=== PATIENT | female | born 1990 | race Caucasian/White ===

== ENCOUNTER → 2016-06-28 | Outpatient (CLI) | payer OTHER ==
[~2016-06-28] MED LIST: ARIP1TAB5 PO; LEFL20 PO; METH25IN13; NAPR500T PO; SPRI28TA PO; TOFA5TAB PO; TOPA25TA8 PO; ULTR50TA5 PO; ZOLO100T PO
[2016-06-28 09:19] LABS: AUTOMATED NEUTROPHIL # 6.8 TH/MM3 (1.8-7.7); BASOPHIL % 0.2 % (0.0-2.0); EOSINOPHIL # 0.1 TH/MM3 (0-0.4); EOSINOPHIL % 0.9 % (0.0-4.0); HEMATOCRIT 38.8 % (35.0-46.0); HEMO FLAGS DIFF FINAL; LYMPH % 16.6 % (9.0-44.0); LYMPHOCYTE # 1.5 TH/MM3 (1.0-4.8); MEAN CELL VOLUME 91.5 FL (80.0-100.0); MEAN CORPUSCULAR HGB CONC 33.9 % (32.0-36.0); MONO % 6.7 % (0.0-8.0); NEUT % 75.6 % (16.0-70.0); PLATELET COUNT 187 TH/MM3 (150-450); RED BLOOD COUNT 4.24 MIL/MM3 (4.00-5.30)
[2016-06-28 09:50] LABS: WESTERGREN SEDIMENTATION RATE 31 mm/hr (0-20)
[2016-06-28 09:54] LABS: ALKALINE PHOSPHATASE 72 U/L (45-117); ALT (GPT) 32 U/L (10-53); ANION GAP 8 MEQ/L (5-15); AST (GOT) 20 U/L (15-37); BICARBONATE 26.6 MEQ/L (21.0-32.0); BLOOD UREA NITROGEN 15 MG/DL (7-18); CHLORIDE 103 MEQ/L (98-107); GLOMERULAR FILTRATION RATE 126 ML/MIN (>89); POTASSIUM 3.7 MEQ/L (3.5-5.1); SODIUM (NA) 138 MEQ/L (136-145); TOTAL BILIRUBIN ADULT 0.3 MG/DL (0.2-1.0)
[2016-06-28 10:12] LABS: RHEUMATOID FACTOR TRIGGER LESS THAN 10.0 IU/ML (0.0-14.9)
[2016-06-28 12:18] LABS: HEPATITIS B SURFACE ANTIBODY GREATER THAN 150 mIU/mL
== END ==
LOC: PLAB 07:42
DX: M79.1 Myalgia (principal); M05.79 Rheumatoid arthritis with rheumatoid factor of multiple sites without organ or systems involvement
CPT/HCPCS: 80053; 82306; 84443; 85025; 85652; 86140; 86200; 86317; 86430; 86803

== ENCOUNTER → 2016-11-11 | Outpatient (CLI) | payer OTHER ==
[~2016-11-11] MED LIST changes: -LEFL20 PO
[2016-11-11 13:00] LABS: BASOPHIL % 0.3 % (0.0-2.0); EOSINOPHIL # 0.2 TH/MM3 (0-0.4); EOSINOPHIL % 2.1 % (0.0-4.0); HEMO FLAGS DIFF FINAL; LYMPH % 21.4 % (9.0-44.0); LYMPHOCYTE # 2.1 TH/MM3 (1.0-4.8); MEAN CELL VOLUME 90.7 FL (80.0-100.0); MEAN CORPUSCULAR HEMOGLOBIN 30.4 PG (27.0-34.0); MEAN CORPUSCULAR HGB CONC 33.5 % (32.0-36.0); MONO % 6.4 % (0.0-8.0); NEUT % 69.8 % (16.0-70.0); PLATELET COUNT 227 TH/MM3 (150-450); RED BLOOD COUNT 3.86 MIL/MM3 (4.00-5.30); RED CELL DISTRIBUTION WIDTH 14.2 % (11.6-17.2)
[2016-11-11 13:21] LABS: ALT (GPT) 24 U/L (10-53); ANION GAP 8 MEQ/L (5-15); AST (GOT) 14 U/L (15-37); BICARBONATE 24.4 MEQ/L (21.0-32.0); BLOOD UREA NITROGEN 16 MG/DL (7-18); CHLORIDE 108 MEQ/L (98-107); GLOMERULAR FILTRATION RATE 109 ML/MIN (>89); SODIUM (NA) 140 MEQ/L (136-145)
[2016-11-11 13:23] LABS: ALKALINE PHOSPHATASE 80 U/L (45-117); TOTAL BILIRUBIN ADULT 0.3 MG/DL (0.2-1.0)
[2016-11-11 13:36] LABS: WESTERGREN SEDIMENTATION RATE 67 mm/hr (0-20)
[2016-11-13 20:03] LABS: MITOGEN MINUS NIL RESULT >10.00 IU/mL (()); NIL RESULT 0.02 IU/mL (()); QUANTIFERON TB GOLD RESULT Negative (Negative)
== END ==
LOC: PLAB 08:48
DX: M05.79 Rheumatoid arthritis with rheumatoid factor of multiple sites without organ or systems involvement (principal); E55.9 Vitamin D deficiency, unspecified; Z79.899 Other long term (current) drug therapy
CPT/HCPCS: 80053; 82306; 85025; 85652; 86140; 86480; 87340

== ENCOUNTER → 2017-01-22 | Outpatient (CLI) | payer OTHER ==
[~2017-01-22] VITALS: Ht 167.6 cm; Wt 128.9 kg
[~2017-01-22] MED LIST changes: +AZIT250T3 PO; +CHLORHEXIDINE GLUCONATE 2 % 1 PACK (2 CLOTHS) TOPICAL PRN; +DO NOT ADM ANY ANTICOAGULANT DRUGS PRN; +FAMOTIDINE 20 MG/2 ML VIAL ONE; +INSULIN HUMAN REGULAR 1,000 UNITS/10 ML VIAL SQ PRN; +LACTATED RINGER'S 1000 ML IV PRN; -METH25IN13; +METOPROLOL TARTRATE 25 MG TAB PO PRN; +MIDAZOLAM HCL 2 MG/2 ML VIAL ONE; -NAPR500T PO; +POVIDONE IODINE 5% (ANTISEPSIS KIT) 4 APPLICATIONS EACH NARE PRN; +PROM25TA10 PO; +PROP60CA PO; +PROPOFOL 200 MG/20 ML AMP IV ONE; +SODIUM CHLORID 0.9% 500 ML IV PRN; +SYNT175T PO; -TOFA5TAB PO; +TOPA100T11 PO; -TOPA25TA8 PO
[2017-01-22 09:48] VITALS: BP 118/72; PULSE 84; RESP 18; TEMP 97.9; O2SAT 98
--- NOTE | 2017-01-22 11:33 | GIPROC ---
[facility] [address] [facility]. [facility], [id number] EGD PROCEDURE REPORT EXAM DATE: 01/22/2017 PATIENT NAME: Juanita Espinoza MR #: [id number] BIRTHDATE: 1990 ATTENDING: Guanakito Stauffer MD ORDER #: [id number] [employer] WORKER: Marco Mcgill and Octavia Mejia STATUS: outpatient INDICATIONS: The patient is a 26 yr old female here for an EGD due to dyspepsia and pyrosis; no significant improvement with omeprazole over the past two weeks. She has documented gastroparsis. She experiences early satiety. PROCEDURE PERFORMED: EGD w/ biopsy MEDICATIONS: GET. TOPICAL ANESTHETIC: none CONSENT: The patient understands the risks and benefits of the procedure and understands that these risks include, but are not limited to: sedation, allergic reaction, infection, perforation and/or bleeding. Alternative means of evaluation and treatment include, among others: physical exam, x-rays, and/or surgical intervention. The patient elects to proceed with this endoscopic procedure. medical equipment was checked for proper function. Hand hygiene and appropriate measures for infection prevention was taken. After the risks, benefits and alternatives of the procedure were thoroughly explained, Informed consent was verified, confirmed and timeout was successfully executed by the treatment team. The patient was anesthetized with topical anesthesia and the Pentax EG-[id number] endoscope was introduced through the mouth and advanced to the 2nd portion of the duodenum . Retroflexion was performed The gastroscope was then slowly withdrawn and removed. The esophgus appeared normal with no evidence of Osborn's mucosa or esophagitis. Fluid was present in the dependent portion of the stomach; antral erosions were noted; biopsies were taken to check for H.pylori. The pylorus and duodenum appeared normal. ADVERSE EVENTS: There were no complications. IMPRESSIONS: Retroflexion was performed Fluid in the stomach, consistent with her known gastroparesis. Antral erosions; biopsied. RECOMMENDATIONS: 1. Await biopsy results. Biopsy results will not be ready for 7-10 days. If you don't hear from us in two weeks, call our office for biopsy results. 2. Gastroparesis diet. Change omeprazole to sucralfate. Return office visit in two weeks. PATIENT CONDITION: stable DISPOSITION: Home REPEAT EXAM: None needed Guanakito Stauffer MD eSigned: Guanakito Stauffer MD 01/22/2017 11:33 AM cc: PATIENT NAME: Juanita Espinoza MR#: [id number]
[2017-01-22 12:30] VITALS: BP 113/69; PULSE 84; RESP 16; TEMP 98.5; O2SAT 98
== END ==
LOC: HEND 08:48
DX: R10.13 Epigastric pain (principal); R12 Heartburn; R68.81 Early satiety; K31.84 Gastroparesis
CPT/HCPCS: 00740; 43239; 88305; 88312; J2250; J3010; J7120; 88307

== ENCOUNTER 2017-01-24 22:42 | Emergency (ER) | payer OTHER ==
[~2017-01-24 22:42] MED LIST changes: -AZIT250T3 PO; -CHLORHEXIDINE GLUCONATE 2 % 1 PACK (2 CLOTHS) TOPICAL PRN; -DO NOT ADM ANY ANTICOAGULANT DRUGS PRN; -FAMOTIDINE 20 MG/2 ML VIAL ONE; -INSULIN HUMAN REGULAR 1,000 UNITS/10 ML VIAL SQ PRN; -LACTATED RINGER'S 1000 ML IV PRN; -METOPROLOL TARTRATE 25 MG TAB PO PRN; -MIDAZOLAM HCL 2 MG/2 ML VIAL ONE; -POVIDONE IODINE 5% (ANTISEPSIS KIT) 4 APPLICATIONS EACH NARE PRN; -PROM25TA10 PO; -PROP60CA PO; -PROPOFOL 200 MG/20 ML AMP IV ONE; -SODIUM CHLORID 0.9% 500 ML IV PRN; -SYNT175T PO
[2017-01-24 22:45] VITALS: BP 159/82; PULSE 99; RESP 16; TEMP 97.7; O2SAT 100
[2017-01-25] MEDS ORDERED: SODIUM CHLOR 0.9% 1000 ML INJ 1,000 ML IV SCH (00:25)
[2017-01-25 00:30] VITALS: O2SAT 99
[2017-01-25] MEDS ORDERED: HYDROmorphone HCL PF 1 MG/ML VIAL IVS ONE (00:30)
[2017-01-25] MEDS ORDERED: ONDANSETRON HCL 4 MG/2 ML VIAL IVP ONE (00:30)
[2017-01-25] MEDS ORDERED: SODIUM CHLORIDE 0.9% FLUSH 10 ML FLUSH IV FLUSH PRN (00:30)
[2017-01-25 01:00] LABS: AUTOMATED NEUTROPHIL # 6.8 TH/MM3 (1.8-7.7); BASOPHIL % 0.5 % (0.0-2.0); EOSINOPHIL # 0.1 TH/MM3 (0-0.4); EOSINOPHIL % 1.2 % (0.0-4.0); HEMATOCRIT 37.5 % (35.0-46.0); HEMO FLAGS DIFF FINAL; LYMPH % 18.8 % (9.0-44.0); LYMPHOCYTE # 1.8 TH/MM3 (1.0-4.8); MEAN CELL VOLUME 88.6 FL (80.0-100.0); MEAN CORPUSCULAR HEMOGLOBIN 29.4 PG (27.0-34.0); MEAN CORPUSCULAR HGB CONC 33.2 % (32.0-36.0); MONO % 6.7 % (0.0-8.0); NEUT % 72.8 % (16.0-70.0); PLATELET COUNT 199 TH/MM3 (150-450); RED BLOOD COUNT 4.23 MIL/MM3 (4.00-5.30); RED CELL DISTRIBUTION WIDTH 13.9 % (11.6-17.2); WHITE BLOOD COUNT 9.4 TH/MM3 (4.0-11.0)
[2017-01-25] MEDS ORDERED: IOHEXOL 350 MG/ML 10 ML VIAL (for RAD DIAG) IVCONTRAST ONE (01:10)
[2017-01-25 01:16] LABS: ALT (GPT) 18 U/L (10-53); ANION GAP 9 MEQ/L (5-15); AST (GOT) 7 U/L (15-37); BICARBONATE 25.2 MEQ/L (21.0-32.0); BLOOD UREA NITROGEN 12 MG/DL (7-18); CHLORIDE 105 MEQ/L (98-107); GLOMERULAR FILTRATION RATE 130 ML/MIN (>89); POTASSIUM 3.7 MEQ/L (3.5-5.1); SODIUM (NA) 139 MEQ/L (136-145)
[2017-01-25 01:18] LABS: ALKALINE PHOSPHATASE 90 U/L (45-117); TOTAL BILIRUBIN ADULT 0.2 MG/DL (0.2-1.0)
--- NOTE | 2017-01-25 01:58 | RADRPT ---
EXAM DATE/TIME: 01/25/2017 01:19 [place] COMPARISON: No previous studies available for comparison. INDICATIONS : Right upper quadrant pain post panendoscopy. IV CONTRAST: 99 cc Omnipaque 350 (iohexol) IV ORAL CONTRAST: No oral contrast ingested. RADIATION DOSE: 27.26 CTDIvol (mGy) ; Patient body habitus MEDICAL HISTORY : None SURGICAL HISTORY : None. ENCOUNTER: Initial ACUITY: 1 day PAIN SCALE: 4/10 LOCATION: abdomen TECHNIQUE: Volumetric scanning of the abdomen and pelvis was performed. Using automated exposure control and ad justment of the mA and/or kV according to patient size, radiation dose was kept as low as reasonably achievable to obtain optimal diagnostic quality images. DICOM format image data is available electro nically for review and comparison. FINDINGS: There is patchy airspace disease at the lung bases, nonspecific but possibly secondary to pneumonia o r aspiration. Mild fatty liver. Spleen, adrenals, kidneys and pancreas unremarkable. No free fluid. No bowel obstruction. No adenopathy. There is a 5.9 x 4.3 cm right adnexal cystic appearing lesion, likely ovarian cyst. No acute bony or pneumonia. Small hiatal hernia CONCLUSION: 1. Patchy basilar air space disease in the lungs. Differential diagnosis includes bronchopneumonia an d aspiration. 2. 5.9 x 4.3 cm right adnexal cystic lesion most characteristic of an ovarian cyst. Bonifacio Sanchez MD on January 25, 2017 at 1:42 Board Certified Radiologist. This report was verified electronically.
--- NOTE | 2017-01-25 02:03 | PD ---
HPI Chief Complaint: Abdominal Pain Time Seen by Provider: 00:22 Travel History International Travel<30 days: No Contact w/Intl Traveler<30days: No Traveled to known affect area: No History of Present Illness HPI 26-year-old female complains of abdominal pain primarily on the right upper quadrant. She underwent panendoscopy a few days ago. Persistent pain reported and she was advised to come here for evaluation to rule out cholecystitis. Appetite has been decreased. Patient has been hunched over at times and severe pain. She was recently diagnosed with gastroparesis. No fever. Similar episode occurred several months ago evidently consistent with cholelithiasis. PFSH Past Medical History Arthritis: Yes (RA) Anxiety: Yes Cancer: No Cardiovascular Problems: No Diabetes: No Diminished Hearing: No Endocrine: No Gastrointestinal Disorders: Yes (GASTRIC PAIN) Genitourinary: No Hepatitis: No Hiatal Hernia: No Immune Disorder: Yes (FIBROMYALGIA) Musculoskeletal: No Neurologic: Yes (MIGRAINES) Psychiatric: Yes Reproductive: No Respiratory: No Immunizations Current: Yes Migraines: Yes Thyroid Disease: No ?: Not : 0 Past Surgical History Joint Replacement: No Pacemaker: No Other Surgery: Yes Social History Alcohol Use: No Tobacco Use: No Substance Use: No Allergies-Medications (Allergen,Severity, Reaction): Coded Allergies: Sulfa (Sulfonamide Antibiotics) (Unverified Allergy, Severe, Rash, 01/24/17) . ciprofloxacin (Unverified Allergy, Severe, Rash, 01/24/17) . meloxicam (Verified Allergy, Severe, Rash, 01/24/17) sulfamethoxazole (Unverified Allergy, Severe, Rash, 01/24/17) . trimethoprim (Unverified Allergy, Severe, Rash, 01/24/17) . Uncoded Allergies: EMBREL (Allergy, Intermediate, INJECTION SITE REACTION, 02/15/16) . Reported Meds & Prescriptions Reported Meds & Active Scripts Active Azithromycin 250 Mg Tab 250 Mg PO DIRECTED Take 2 tabs (500 mg) on day 1 then 1 tab daily x 4 days. Sprintec 28 (Norgestimate-Ethinyl Estradiol) 0.25-35 mg-Mcg Tab 1 Tab PO DAILY Abilify (Aripiprazole) 10 Mg Tab 10 Mg PO DAILY Reported Zoloft (Sertraline HCl) 100 Mg Tab 200 Mg PO DAILY Topamax (Topiramate) 100 Mg Tab 100 Mg PO BID PT TAKES FOR MIGRAINES Ultram (Tramadol HCl) 50 Mg Tab 50 Mg PO Q4H PRN Review of Systems Except as stated in HPI: all other systems reviewed are Neg Physical Exam Narrative GENERAL: 26 yo F, WNWD, no acute distress SKIN: Warm and dry. HEAD: Atraumatic. Normocephalic. EYES: Pupils equal and round. No scleral icterus. No injection or drainage. ENT: No nasal bleeding or discharge. Mucous membranes pink and moist. NECK: Trachea midline. No JVD. CARDIOVASCULAR: Regular rate and rhythm. RESPIRATORY: No accessory muscle use. Clear to auscultation. Breath sounds equal bilaterally. GASTROINTESTINAL: Soft. TTP epigastrium and RUQ. Minimal TTP R flank. MUSCULOSKELETAL: Extremities without clubbing, cyanosis, or edema. No obvious deformities. NEUROLOGICAL: Awake and alert. No obvious cranial nerve deficits. Motor grossly within normal limits. Five out of 5 muscle strength in the arms and legs. Normal speech. PSYCHIATRIC: Appropriate mood and affect; insight and judgment normal. Data Data Last Documented VS Vital Signs Date Time Temp Pulse Resp B/P (MAP) Pulse Ox O2 Delivery O2 Flow Rate FiO2 01/25/17 02:10 01/25/17 00:30 99 Room Air 01/24/17 22:45 97.7 99 16 BP approx 150/89 Orders Orders Complete Blood Count With Diff (01/25/17 00:25) Comprehensive Metabolic Panel (01/25/17 00:25) Lipase (01/25/17 00:25) Iv Access Insert/Monitor (01/25/17 00:25) Ecg Monitoring (01/25/17 00:25) Oximetry (01/25/17 00:25) Ondansetron Inj (Zofran Inj) (01/25/17 00:30) Sodium Chlor 0.9% 1000 Ml Inj (Ns 1000 M (01/25/17 00:25) Sodium Chloride 0.9% Flush (Ns Flush) (01/25/17 00:30) Hydromorphone Pf Inj (Dilaudid Pf Inj) (01/25/17 00:30) Ed Urine Pregnancytest Poc (01/25/17 00:25) Ct Abd/Pel W Iv Contrast(Rout) (01/25/17 00:25) Iohexol 350 Inj (Omnipaque 350 Inj) (01/25/17 01:10) Azithromycin (Zithromax) (01/25/17 02:15) Labs Laboratory Tests Test 01/25/17 00:40 White Blood Count 9.4 TH/MM3 Red Blood Count 4.23 MIL/MM3 Hemoglobin 12.4 GM/DL Hematocrit 37.5 % Mean Corpuscular Volume 88.6 FL Mean Corpuscular Hemoglobin 29.4 PG Mean Corpuscular Hemoglobin Concent 33.2 % Red Cell Distribution Width 13.9 % Platelet Count 199 TH/MM3 Mean Platelet Volume 9.8 FL Neutrophils (%) (Auto) 72.8 % Lymphocytes (%) (Auto) 18.8 % Monocytes (%) (Auto) 6.7 % Eosinophils (%) (Auto) 1.2 % Basophils (%) (Auto) 0.5 % Neutrophils # (Auto) 6.8 TH/MM3 Lymphocytes # (Auto) 1.8 TH/MM3 Monocytes # (Auto) 0.6 TH/MM3 Eosinophils # (Auto) 0.1 TH/MM3 Basophils # (Auto) 0.0 TH/MM3 CBC Comment DIFF FINAL Differential Comment Blood Urea Nitrogen 12 MG/DL Creatinine 0.56 MG/DL Random Glucose 112 MG/DL Total Protein 7.2 GM/DL Albumin 3.2 GM/DL Calcium Level 9.0 MG/DL Alkaline Phosphatase 90 U/L Aspartate Amino Transf (AST/SGOT) 7 U/L Alanine Aminotransferase (ALT/SGPT) 18 U/L Total Bilirubin 0.2 MG/DL Sodium Level 139 MEQ/L Potassium Level 3.7 MEQ/L Chloride Level 105 MEQ/L Carbon Dioxide Level 25.2 MEQ/L Anion Gap 9 MEQ/L Estimat Glomerular Filtration Rate 130 ML/MIN Lipase 97 U/L [facility] Medical Decision Making Medical Screen Exam Complete: Yes Emergency Medical Condition: Yes Differential Diagnosis Gastritis, pancreatitis, appendicitis, acute cholecystitis, ascending cholangitis, AAA, perforated viscous, mesenteric ischemia, hepatitis, cystitis, hydronephrosis/hydroureter/nephroureter calculus, mesenteric adenitis, biliary colic Narrative Course CBC & BMP Diagram 01/25/17 00:40 Total Protein 7.2, Albumin 3.2 L, Calcium Level 9.0, Alkaline Phosphatase 90, Aspartate Amino Transf (AST/SGOT) 7 L, Alanine Aminotransferase (ALT/SGPT) 18, Total Bilirubin 0.2 Lipase normal Last 24 hours Impressions Abdomen/Pelvis CT 01/25/17 0025 Signed Impressions: Service Date/Time: Wednesday, January 25, 2017 01:19 - CONCLUSION: 1. Patchy basilar air space disease in the lungs. Differential diagnosis includes bronchopneumonia and aspiration. 2. 5.9 x 4.3 cm right adnexal cystic lesion most characteristic of an ovarian cyst. Bonifacio Sanchez MD Patient is aware of the right adnexal cyst and has a gynecology follow-up and has verbalized agreement from the client consultant potential intervention. It appeared today's presentation is consistent with bibasilar lung consolidation. Antibiotic prescribed. Return precautions discussed. Diagnosis Primary Impression: Abdominal pain Qualified Codes: R10.9 - Unspecified abdominal pain Additional Impression: Lung consolidation Referrals: Guanakito Stauffer MD call for appointment Additional Instructions: You have a choice when it comes to health care, and we are glad that you chose [facility]. Hopefully, we have met your expectations on today's visit. You are welcome to return to [facility] at any time, as we are committed to meeting the health care needs of our community. Med/Other Pt SpecificInfo: Prescription(s) given Scripts Azithromycin (Azithromycin) 250 Mg Tab 250 MG PO DIRECTED for Infection, #6 TAB 0 Refills Take 2 tabs (500 mg) on day 1 then 1 tab daily x 4 days. Prov: Stephen Whitaker MD 01/25/17 Disposition: 01 DISCHARGE HOME Condition: Stable Stephen Whitaker MD Jan 25, 2017 02:03
[2017-01-25] MEDS ORDERED: AZIT250T3 PO (02:05)
[2017-01-25] MEDS ORDERED: AZITHROMYCIN 250 MG TAB PO ONE (02:15)
[2017-01-26] MEDS ORDERED: ULTR50TA5 PO (16:39)
[2017-01-26] MEDS ORDERED: SYNT175T PO (16:39)
[2017-01-26] MEDS ORDERED: SPRI28TA PO (16:39)
[2017-01-26] MEDS ORDERED: PROP60CA PO (16:39)
[2017-01-26] MEDS ORDERED: PROM25TA10 PO (16:48)
== END 2017-01-25 02:18 | disposition home or self-care (01) ==
LOC: NEPE 22:42
DX: R10.9 Unspecified abdominal pain (principal); J18.1 Lobar pneumonia, unspecified organism; Z87.39 Personal history of other diseases of the musculoskeletal system and connective tissue; Z86.59 Personal history of other mental and behavioral disorders; Z87.19 Personal history of other diseases of the digestive system; Z86.69 Personal history of other diseases of the nervous system and sense organs
CPT/HCPCS: 74177; 80053; 83690; 84703; 85025; 96374; 96375; 99285; J1170; J2405; J7030; Q9967

== ENCOUNTER 2017-01-26 16:13 | Emergency (ER) | payer OTHER ==
[~2017-01-26] VITALS: Ht 167.6 cm; Wt 129.7 kg
[~2017-01-26 16:13] MED LIST changes: +AZIT250T3 PO
[2017-01-26 16:16] VITALS: BP 149/89; PULSE 89; RESP 16; TEMP 98.1; O2SAT 89
[2017-01-26] MEDS ORDERED: PROP60CA PO (16:39)
[2017-01-26] MEDS ORDERED: ULTR50TA5 PO (16:39)
[2017-01-26] MEDS ORDERED: SYNT175T PO (16:39)
[2017-01-26] MEDS ORDERED: SPRI28TA PO (16:39)
[2017-01-26] MEDS ORDERED: PROM25TA10 PO (16:48)
--- NOTE | 2017-01-26 16:51 | PD ---
HPI Chief Complaint: Abdominal Pain Time Seen by Provider: 16:38 Travel History International Travel<30 days: No Contact w/Intl Traveler<30days: No Traveled to known affect area: No History of Present Illness HPI The patient was seen and examined in the presence of the nurse. This patient complains of abdominal pain. Location is difficult for her to pinpoint. It's rather migratory. It can occur in any of the quadrants. Severity is moderate. She has nausea but no vomiting or diarrhea or constipation or fever. No alleviating factors. PFSH Past Medical History Arthritis: Yes (RA) Anxiety: Yes Cancer: No Cardiovascular Problems: No Diabetes: No Diminished Hearing: No Endocrine: No Gastrointestinal Disorders: Yes (GASTRIC PAIN) Genitourinary: Yes (ovarian cyst) Hepatitis: No Hiatal Hernia: No Immune Disorder: Yes (FIBROMYALGIA) Musculoskeletal: No Neurologic: Yes (MIGRAINES) Psychiatric: Yes Reproductive: No Respiratory: No Immunizations Current: Yes Migraines: Yes Thyroid Disease: Yes Tetanus Vaccination: < 5 Years Influenza Vaccination: No ?: Not LMP: 01/06/17 : 0 Past Surgical History Joint Replacement: No Pacemaker: No Other Surgery: Yes Social History Alcohol Use: No Tobacco Use: No Substance Use: No Allergies-Medications (Allergen,Severity, Reaction): Coded Allergies: Sulfa (Sulfonamide Antibiotics) (Unverified Allergy, Severe, Rash, 01/26/17) . ciprofloxacin (Unverified Allergy, Severe, Rash, 01/26/17) . meloxicam (Verified Allergy, Severe, Rash, 01/26/17) sulfamethoxazole (Unverified Allergy, Severe, Rash, 01/26/17) . trimethoprim (Unverified Allergy, Severe, Rash, 01/26/17) . Uncoded Allergies: EMBREL (Allergy, Intermediate, INJECTION SITE REACTION, 01/26/17) .. Reported Meds & Prescriptions Reported Meds & Active Scripts Active Phenergan (Promethazine HCl) 25 Mg Tablet 25 Mg PO Q6H PRN Azithromycin 250 Mg Tab 250 Mg PO DIRECTED Take 2 tabs (500 mg) on day 1 then 1 tab daily x 4 days. Sprintec 28 (Norgestimate-Ethinyl Estradiol) 0.25-35 mg-Mcg Tab 1 Tab PO DAILY Abilify (Aripiprazole) 10 Mg Tab 10 Mg PO DAILY Reported Ultram (Tramadol HCl) 50 Mg Tab 50 Mg PO Q4H PRN Sprintec 28 (Norgestimate-Ethinyl Estradiol) 0.25-35 mg-Mcg Tab 1 Tab PO DAILY Propranolol ER 24 HR (Propranolol HCl) 60 Mg Cap 60 Mg PO DAILY Synthroid (Levothyroxine Sodium) 175 Mcg Tab 175 Mcg PO DAILY Zoloft (Sertraline HCl) 100 Mg Tab 200 Mg PO DAILY Topamax (Topiramate) 100 Mg Tab 100 Mg PO BID PT TAKES FOR MIGRAINES Ultram (Tramadol HCl) 50 Mg Tab 50 Mg PO Q4H PRN Review of Systems General / Constitutional: No: Fever Eyes: No: Visual changes HENT: No: Headaches Cardiovascular: No: Chest Pain or Discomfort Respiratory: No: Shortness of Breath Gastrointestinal: Positive: Nausea, Abdominal Pain Genitourinary: No: Dysuria Musculoskeletal: No: Pain Skin: No Rash Neurologic: No: Weakness Psychiatric: No: Depression Endocrine: No: Polydipsia Hematologic/Lymphatic: No: Easy Bruising Physical Exam Narrative GENERAL: Well-nourished, well-developed patient in no apparent distress. SKIN: Focused skin assessment reveals no rash and nodules. Skin is Warm and dry. HEAD: Atraumatic. Normocephalic. EYES: Pupils equal and round. No scleral icterus. No injection or drainage. ENT: No nasal bleeding or discharge. Mucous membranes pink and moist. NECK: Trachea midline. No JVD. CARDIOVASCULAR: Regular rate and rhythm. No murmur appreciated. RESPIRATORY: No accessory muscle use. Clear to auscultation. Breath sounds equal bilaterally. GASTROINTESTINAL: Abdomen soft, non-tender, nondistended. Hepatic and splenic margins not palpable. MUSCULOSKELETAL: No obvious deformities. No clubbing. No cyanosis. No edema. NEUROLOGICAL: Awake and alert. No obvious cranial nerve deficits. Motor grossly within normal limits. Normal speech. PSYCHIATRIC: Appropriate mood and affect; insight and judgment normal. Data Data Last Documented VS Vital Signs Date Time Temp Pulse Resp B/P (MAP) Pulse Ox O2 Delivery O2 Flow Rate FiO2 01/26/17 16:16 98.1 89 16 149/89 (109) 89 MDM Medical Decision Making Medical Screen Exam Complete: Yes Emergency Medical Condition: Yes Medical Record Reviewed: Yes Differential Diagnosis Irritable bowel syndrome, colitis, gastroenteritis Narrative Course I have reviewed the patient's electronic medical record. I reviewed her visit from yesterday. She had extensive workup including labs and CT of abdomen and pelvis She has a soft benign nontender abdomen and normal vital signs Initially logged in with 89% pulse ox but that is not correct, it is 100% on room air I don't feel repeating the abdominal pain workup from yesterday would be full Follow-up with primary care physician I wrote her some Phenergan to try Diagnosis Primary Impression: Abdominal pain Qualified Codes: R10.84 - Generalized abdominal pain Additional Instructions: The patient was advised to follow up with their physician and return if they worsen. The patient was warned about potential sedation for the medications they will receive on prescription. Med/Other Pt SpecificInfo: Prescription(s) given Scripts Promethazine (Phenergan) 25 Mg Tablet 25 MG PO Q6H Y for NAUSEA OR VOMITING, #12 TAB 0 Refills Prov: Otoniel Peguero MD 01/26/17 Disposition: 01 DISCHARGE HOME Condition: Stable Otoniel Peguero MD Jan 26, 2017 16:51
== END 2017-01-26 17:27 | disposition home or self-care (01) ==
LOC: PHED 16:13
DX: R10.84 Generalized abdominal pain (principal)
CPT/HCPCS: 99283

== ENCOUNTER → 2017-06-04 | Outpatient (CLI) | payer OTHER ==
[~2017-06-04] MED LIST changes: +ABIL10TA8 PO; -ARIP1TAB5 PO; +PROM25TA10 PO; +PROP60CA PO; +SYNT175T PO; -TOPA100T11 PO; +TOPI100 PO; +TRAM50 PO; -ULTR50TA5 PO
[2017-06-04 09:44] LABS: BASOPHIL % 0.5 % (0.0-2.0); EOSINOPHIL # 0.1 TH/MM3 (0-0.4); EOSINOPHIL % 1.8 % (0.0-4.0); HEMATOCRIT 36.6 % (35.0-46.0); HEMOGLOBIN 12.5 GM/DL (11.6-15.3); LYMPH % 18.3 % (9.0-44.0); LYMPHOCYTE # 1.5 TH/MM3 (1.0-4.8); MEAN CELL VOLUME 89.1 FL (80.0-100.0); MEAN CORPUSCULAR HEMOGLOBIN 30.4 PG (27.0-34.0); MEAN CORPUSCULAR HGB CONC 34.1 % (32.0-36.0); MEAN PLATELET VOLUME 9.9 FL (7.0-11.0); MONO % 5.7 % (0.0-8.0); MONOCYTE # 0.5 TH/MM3 (0-0.9); NEUT % 73.7 % (16.0-70.0); PLATELET COUNT 215 TH/MM3 (150-450); RED BLOOD COUNT 4.11 MIL/MM3 (4.00-5.30); RED CELL DISTRIBUTION WIDTH 13.8 % (11.6-17.2); WHITE BLOOD COUNT 8.1 TH/MM3 (4.0-11.0)
[2017-06-04 10:10] LABS: WESTERGREN SEDIMENTATION RATE 51 mm/hr (0-20)
[2017-06-04 10:19] LABS: ALBUMIN 3.3 GM/DL (3.4-5.0); ALT (GPT) 19 U/L (10-53); AST (GOT) 8 U/L (15-37); BICARBONATE 22.5 MEQ/L (21.0-32.0); BLOOD UREA NITROGEN 9 MG/DL (7-18); C-REACTIVE PROTEIN 3.79 MG/DL (0.00-0.30); CALCIUM 8.9 MG/DL (8.5-10.1); CHLORIDE 108 MEQ/L (98-107); CREATININE 0.56 MG/DL (0.50-1.00); GLOMERULAR FILTRATION RATE 130 ML/MIN (>89); GLUCOSE,RANDOM 104 MG/DL (74-106); SODIUM (NA) 139 MEQ/L (136-145)
[2017-06-04 10:22] LABS: ALKALINE PHOSPHATASE 104 U/L (45-117); TOTAL BILIRUBIN ADULT 0.4 MG/DL (0.2-1.0); TOTAL PROTEIN 7.3 GM/DL (6.4-8.2)
[2017-06-04 10:24] LABS: RHEUMATOID FACTOR SCREEN NEGATIVE (NEGATIVE)
[2017-06-06 15:39] LABS: ANA SCREEN POS (NEG)
[2017-06-09 15:23] LABS: ANA PATTERN DIFFUSE
== END ==
LOC: PLAB 07:14
PROVIDERS: ATTEND Allergy & Immunology
DX: R79.82 Elevated C-reactive protein (CRP) (principal); R60.0 Localized edema; M25.50 Pain in unspecified joint
CPT/HCPCS: 36415; 80053; 82550; 85025; 85652; 86038; 86039; 86140; 86200; 86430

== ENCOUNTER → 2017-06-24 | Outpatient (CLI) | payer OTHER ==
[2017-06-24 09:31] LABS: AUTOMATED NEUTROPHIL # 5.1 TH/MM3 (1.8-7.7); BASOPHIL % 0.6 % (0.0-2.0); EOSINOPHIL # 0.2 TH/MM3 (0-0.4); EOSINOPHIL % 2.9 % (0.0-4.0); HEMATOCRIT 37.8 % (35.0-46.0); HEMOGLOBIN 12.7 GM/DL (11.6-15.3); LYMPH % 19.8 % (9.0-44.0); LYMPHOCYTE # 1.4 TH/MM3 (1.0-4.8); MEAN CELL VOLUME 88.8 FL (80.0-100.0); MEAN CORPUSCULAR HEMOGLOBIN 29.8 PG (27.0-34.0); MEAN CORPUSCULAR HGB CONC 33.6 % (32.0-36.0); MEAN PLATELET VOLUME 9.3 FL (7.0-11.0); MONO % 4.7 % (0.0-8.0); MONOCYTE # 0.3 TH/MM3 (0-0.9); PLATELET COUNT 233 TH/MM3 (150-450); RED BLOOD COUNT 4.26 MIL/MM3 (4.00-5.30); RED CELL DISTRIBUTION WIDTH 14.4 % (11.6-17.2); WHITE BLOOD COUNT 7.1 TH/MM3 (4.0-11.0)
[2017-06-24 09:32] LABS: ALBUMIN 3.5 GM/DL (3.4-5.0); AST (GOT) 33 U/L (15-37); BICARBONATE 23.8 MEQ/L (21.0-32.0); BLOOD UREA NITROGEN 11 MG/DL (7-18); CALCIUM 9.4 MG/DL (8.5-10.1); CHLORIDE 108 MEQ/L (98-107); CREATININE 0.71 MG/DL (0.50-1.00); GLOMERULAR FILTRATION RATE 99 ML/MIN (>89); GLUCOSE,FASTING 102 MG/DL (74-99); SODIUM (NA) 138 MEQ/L (136-145)
[2017-06-24 09:33] LABS: ALT (GPT) 53 U/L (10-53)
[2017-06-24 09:35] LABS: ALKALINE PHOSPHATASE 109 U/L (45-117); TOTAL BILIRUBIN ADULT 0.3 MG/DL (0.2-1.0); TOTAL PROTEIN 7.4 GM/DL (6.4-8.2)
[2017-06-24 09:51] LABS: WESTERGREN SEDIMENTATION RATE 55 mm/hr (0-20)
== END ==
LOC: PLAB 07:08
PROVIDERS: ATTEND Allergy & Immunology
DX: M06.00 Rheumatoid arthritis without rheumatoid factor, unspecified site (principal); Z79.899 Other long term (current) drug therapy
CPT/HCPCS: 36415; 80053; 85025; 85652; 86140

== ENCOUNTER → 2017-08-15 | Outpatient (CLI) | payer OTHER ==
[2017-08-15 10:38] LABS: BASOPHIL % 0.5 % (0.0-2.0); EOSINOPHIL # 0.2 TH/MM3 (0-0.4); EOSINOPHIL % 2.1 % (0.0-4.0); HEMATOCRIT 39.3 % (35.0-46.0); HEMOGLOBIN 13.5 GM/DL (11.6-15.3); LYMPHOCYTE # 1.9 TH/MM3 (1.0-4.8); MEAN CELL VOLUME 90.4 FL (80.0-100.0); MEAN CORPUSCULAR HEMOGLOBIN 31.2 PG (27.0-34.0); MEAN CORPUSCULAR HGB CONC 34.5 % (32.0-36.0); MONO % 5.9 % (0.0-8.0); MONOCYTE # 0.5 TH/MM3 (0-0.9); NEUT % 66.5 % (16.0-70.0); PLATELET COUNT 206 TH/MM3 (150-450); RED BLOOD COUNT 4.34 MIL/MM3 (4.00-5.30); RED CELL DISTRIBUTION WIDTH 13.7 % (11.6-17.2); WHITE BLOOD COUNT 7.6 TH/MM3 (4.0-11.0)
[2017-08-15 10:53] LABS: ALBUMIN 3.3 GM/DL (3.4-5.0); AST (GOT) 22 U/L (15-37); BICARBONATE 24.2 MEQ/L (21.0-32.0); BLOOD UREA NITROGEN 13 MG/DL (7-18); CALCIUM 9.1 MG/DL (8.5-10.1); CHLORIDE 106 MEQ/L (98-107); CREATININE 0.67 MG/DL (0.50-1.00); GLOMERULAR FILTRATION RATE 106 ML/MIN (>89); GLUCOSE,FASTING 93 MG/DL (74-99); SODIUM (NA) 138 MEQ/L (136-145)
[2017-08-15 10:56] LABS: ALKALINE PHOSPHATASE 96 U/L (45-117); ALT (GPT) 34 U/L (10-53); TOTAL BILIRUBIN ADULT 0.4 MG/DL (0.2-1.0); TOTAL PROTEIN 7.5 GM/DL (6.4-8.2)
[2017-08-15 10:58] LABS: WESTERGREN SEDIMENTATION RATE 37 mm/hr (0-20)
== END ==
LOC: PLAB 07:14
DX: M19.90 Unspecified osteoarthritis, unspecified site (principal)
CPT/HCPCS: 36415; 80053; 85025; 85652; 86140

== ENCOUNTER 2017-08-28 19:48 | Emergency (ER) | payer OTHER ==
[~2017-08-28] VITALS: Ht 165.1 cm; Wt 133.0 kg
[2017-08-28 20:47] VITALS: BP 160/95; PULSE 117; RESP 18; TEMP 98.5; O2SAT 96
[2017-08-28] MEDS ORDERED: SODIUM CHLORIDE 0.9% FLUSH 10 ML FLUSH IV FLUSH PRN (21:15)
[2017-08-28] MEDS ORDERED: ONDANSETRON HCL 4 MG/2 ML VIAL IVP ONE (21:15)
[2017-08-28] MEDS ORDERED: MORPHINE SULFATE 4 MG/ML INJ IV PUSH ONE (21:15)
[2017-08-28] MEDS ORDERED: KETOROLAC TROMETHAMINE 30 MG/ML (IVP) VIAL IVP ONE (21:15)
[2017-08-28 21:35] LABS: AUTOMATED NEUTROPHIL # 7.3 TH/MM3 (1.8-7.7); BASOPHIL # 0.1 TH/MM3 (0-0.2); BASOPHIL % 0.6 % (0.0-2.0); EOSINOPHIL # 0.1 TH/MM3 (0-0.4); EOSINOPHIL % 1.1 % (0.0-4.0); HEMATOCRIT 38.3 % (35.0-46.0); HEMOGLOBIN 12.9 GM/DL (11.6-15.3); LYMPH % 19.8 % (9.0-44.0); MEAN CORPUSCULAR HEMOGLOBIN 29.9 PG (27.0-34.0); MEAN CORPUSCULAR HGB CONC 33.5 % (32.0-36.0); MEAN PLATELET VOLUME 9.4 FL (7.0-11.0); MONO % 6.5 % (0.0-8.0); MONOCYTE # 0.7 TH/MM3 (0-0.9); PLATELET COUNT 234 TH/MM3 (150-450); RED BLOOD COUNT 4.31 MIL/MM3 (4.00-5.30); RED CELL DISTRIBUTION WIDTH 12.8 % (11.6-17.2); WHITE BLOOD COUNT 10.2 TH/MM3 (4.0-11.0)
[2017-08-28 21:38] VITALS: BP 135/84; PULSE 108; RESP 18; O2SAT 100
[2017-08-28 21:43] LABS: CHLORIDE 102 MEQ/L (98-107); SODIUM (NA) 137 MEQ/L (136-145)
[2017-08-28 21:45] LABS: BILIRUBIN, URINE NEG (NEG); BLOOD, URINE TRACE (NEG); GLUCOSE,URINE NEG (NEG); KETONE, URINE TRACE mg/dL (NEG); NITRITE,URINE NEG (NEG); URINE COLOR YELLOW (YELLW/STRAW); URINE LEUKOCYTE ESTERASE NEG (NEG)
[2017-08-28 21:47] LABS: ALBUMIN 3.5 GM/DL (3.4-5.0); BLOOD UREA NITROGEN 17 MG/DL (7-18); CALCIUM 9.4 MG/DL (8.5-10.1); GLUCOSE,RANDOM 94 MG/DL (74-106)
--- NOTE | 2017-08-28 21:48 | PD ---
HPI . Abdominal pain Chief Complaint: Abdominal Pain Time Seen by Provider: 20:58 Travel History International Travel<30 days: No Contact w/Intl Traveler<30days: No Traveled to known affect area: No History of Present Illness HPI This patient presents with a chief complaint of abdominal pain. She reports right upper quadrant abdominal pain which radiates through to her back. Onset was this morning. Pain is rated 5/10. There are no modifying factors. She reports one episode of emesis about an hour ago. She denies any fever, urinary tract symptoms or HEALTH INFORMATION PROVIDER symptoms. PFSH Past Medical History Arthritis: Yes (RA) Anxiety: Yes Cancer: No Cardiovascular Problems: No Diabetes: No Diminished Hearing: No Endocrine: Yes Gastrointestinal Disorders: Yes (GASTRIC PAIN, Gastroperisis) GERD: Yes Genitourinary: Yes (ovarian cyst) Hepatitis: No Hiatal Hernia: No Immune Disorder: Yes (FIBROMYALGIA) Musculoskeletal: No Neurologic: Yes (MIGRAINES) Psychiatric: Yes Reproductive: No Respiratory: No Immunizations Current: Yes Migraines: Yes Thyroid Disease: Yes Influenza Vaccination: Yes ?: Not LMP: 07/17/17 : 0 Past Surgical History Joint Replacement: No Pacemaker: No Other Surgery: Yes Social History Alcohol Use: No Tobacco Use: No Substance Use: No Allergies-Medications (Allergen,Severity, Reaction): Coded Allergies: Sulfa (Sulfonamide Antibiotics) (Unverified Allergy, Severe, Rash, 08/28/17) . ciprofloxacin (Unverified Allergy, Severe, Rash, 08/28/17) . meloxicam (Verified Allergy, Severe, Rash, 08/28/17) sulfamethoxazole (Unverified Allergy, Severe, Rash, 08/28/17) . trimethoprim (Unverified Allergy, Severe, Rash, 08/28/17) . Uncoded Allergies: EMBREL (Allergy, Intermediate, INJECTION SITE REACTION, 01/26/17) .. Reported Meds & Prescriptions Reported Meds & Active Scripts Active Abilify (Aripiprazole) 10 Mg Tab 10 Mg PO DAILY Reported Folic Acid 0.4 Mg Tab 400 Mcg PO DAILY Methotrexate 2.5 Mg Tab 5 Mg PO Q7D Cimzia (2 vial) Kit Inj (Certolizumab Pegol Inj) 400 Mg (200 Mg X 2) Kit 400 Mg SQ Q14D Administer 2 syringes (400 mg) to separate sites. Cymbalta DR (Duloxetine HCl) 20 Mg Capdr 20 Mg PO DAILY Sertraline (Sertraline HCl) 50 Mg Tab 50 Mg PO DAILY Propranolol ER 24 HR (Propranolol HCl) 60 Mg Cap 60 Mg PO DAILY Synthroid (Levothyroxine Sodium) 175 Mcg Tab 175 Mcg PO DAILY Topamax (Topiramate) 100 Mg Tab 100 Mg PO BID PT TAKES FOR MIGRAINES Review of Systems Except as stated in HPI: all other systems reviewed are Neg General / Constitutional: No: Fever, Chills Gastrointestinal: Positive: Nausea, Vomiting, Abdominal Pain, No: Diarrhea Genitourinary: No: Urgency, Frequency, Dysuria, Decreased Urinary Output Physical Exam Narrative GENERAL: Awake alert and in no acute distress. SKIN: warm/dry. HEAD: Normocephalic. Atraumatic. EYES: Pupils equal and round. No scleral icterus. No injection or drainage. ENT: No nasal bleeding or discharge. Mucous membranes pink and moist. NECK: Trachea midline. Full range of motion without pain.. CARDIOVASCULAR: Regular rate and rhythm. RESPIRATORY: No accessory muscle use. Clear to auscultation. Breath sounds equal bilaterally. GASTROINTESTINAL: Abdomen soft. Right upper quadrant tenderness but negative Montano sign. Bowel sounds present. Nondistended. No CVA tenderness. MUSCULOSKELETAL: No obvious deformities. NEUROLOGICAL: Awake and alert. No obvious cranial nerve deficits. Motor grossly within normal limits. Normal speech. PSYCHIATRIC: Appropriate mood and affect; insight and judgment normal. Data Data Last Documented VS Vital Signs Date Time Temp Pulse Resp B/P (MAP) Pulse Ox O2 Delivery O2 Flow Rate FiO2 08/28/17 23:25 98 18 121/66 (84) 100 Room Air 08/28/17 20:47 98.5 Orders Orders Complete Blood Count With Diff (08/28/17 21:09) Comprehensive Metabolic Panel (08/28/17 21:09) Lipase (08/28/17 21:09) Ct Abd/Pel W Iv Contrast(Rout) (08/28/17 21:09) Iv Access Insert/Monitor (08/28/17 21:09) Ecg Monitoring (08/28/17 21:09) Oximetry (08/28/17 21:09) Morphine Inj (Morphine Inj) (08/28/17 21:15) Ondansetron Inj (Zofran Inj) (08/28/17 21:15) Sodium Chloride 0.9% Flush (Ns Flush) (08/28/17 21:15) Ketorolac Inj (Toradol Inj) (08/28/17 21:15) Ed Urine Pregnancytest Poc (08/28/17 21:09) Urinalysis - C+S If Indicated (08/28/17 21:30) Iohexol 350 Inj (Omnipaque 350 Inj) (08/28/17 23:25) Labs Laboratory Tests Test 08/28/17 21:25 08/28/17 21:39 White Blood Count 10.2 TH/MM3 Red Blood Count 4.31 MIL/MM3 Hemoglobin 12.9 GM/DL Hematocrit 38.3 % Mean Corpuscular Volume 89.0 FL Mean Corpuscular Hemoglobin 29.9 PG Mean Corpuscular Hemoglobin Concent 33.5 % Red Cell Distribution Width 12.8 % Platelet Count 234 TH/MM3 Mean Platelet Volume 9.4 FL Neutrophils (%) (Auto) 72.0 % Lymphocytes (%) (Auto) 19.8 % Monocytes (%) (Auto) 6.5 % Eosinophils (%) (Auto) 1.1 % Basophils (%) (Auto) 0.6 % Neutrophils # (Auto) 7.3 TH/MM3 Lymphocytes # (Auto) 2.0 TH/MM3 Monocytes # (Auto) 0.7 TH/MM3 Eosinophils # (Auto) 0.1 TH/MM3 Basophils # (Auto) 0.1 TH/MM3 CBC Comment DIFF FINAL Differential Comment Blood Urea Nitrogen 17 MG/DL Creatinine 0.65 MG/DL Random Glucose 94 MG/DL Total Protein 8.1 GM/DL Albumin 3.5 GM/DL Calcium Level 9.4 MG/DL Alkaline Phosphatase 119 U/L Aspartate Amino Transf (AST/SGOT) 13 U/L Alanine Aminotransferase (ALT/SGPT) 28 U/L Total Bilirubin 0.3 MG/DL Sodium Level 137 MEQ/L Potassium Level 3.4 MEQ/L Chloride Level 102 MEQ/L Carbon Dioxide Level 26.0 MEQ/L Anion Gap 9 MEQ/L Estimat Glomerular Filtration Rate 109 ML/MIN Lipase 118 U/L Urine Color YELLOW Urine Turbidity CLEAR Urine pH 6.0 Urine Specific [place] GREATER/EQUAL 1.030 Urine Protein NEG mg/dL Urine Glucose (UA) NEG mg/dL Urine Ketones TRACE mg/dL Urine Occult Blood TRACE Urine Nitrite NEG Urine Bilirubin NEG Urine Urobilinogen 0.2 MG/DL Urine Leukocyte Esterase NEG Urine RBC 0-3 /hpf Urine WBC 3-5 /hpf Urine Squamous Epithelial Cells 6-8 /hpf Urine Calcium Oxalate Crystals MANY /hpf Microscopic Urinalysis Comment CULT NOT INDICATED MDM Medical Decision Making Medical Screen Exam Complete: Yes Emergency Medical Condition: Yes Differential Diagnosis Differential diagnosis of abdominal pain includes but is not limited to gastritis, pancreatitis, hepatitis, gastroenteritis, constipation, urinary retention, peptic ulcer disease, diverticulitis or appendicitis Narrative Course This patient presents with the chief complaint of right upper quadrant abdominal pain. She has had one episode of emesis. Her abdominal exam is pretty benign. She has some right upper quadrant tenderness with no guarding or rebound. She has a negative Montano sign. An IV has been started. IV pain medication has been ordered. Routine abdominal pain labs have been ordered. CT of the abdomen and pelvis has been ordered. Disposition will be dependent upon the results of these tests. CBC & BMP Diagram 08/28/17 21:25 Total Protein 8.1, Albumin 3.5, Calcium Level 9.4, Alkaline Phosphatase 119 H, Aspartate Amino Transf (AST/SGOT) 13 L, Alanine Aminotransferase (ALT/SGPT) 28, Total Bilirubin 0.3, lipase 118 UA is negative with the exception of calcium oxalate crystals. CT: 1. 3.6 cm left ovarian cyst. 2. Previously seen right ovarian cystic mass no longer present. No etiology for this patient's right upper quadrant pain has been found. She will be discharged home. Diagnosis Primary Impression: Abdominal pain Qualified Codes: R10.11 - Right upper quadrant pain Patient Instructions: Abdominal Pain (ED), General Instructions Additional Instructions: Follow-up with your primary care provider if symptoms continue. This could still be a problem with your gallbladder. Med/Other Pt SpecificInfo: Prescription(s) given Scripts Dicyclomine (Bentyl) 10 Mg Cap 20 MG PO QID for abdominal pain, #20 CAP 0 Refills Prov: Alesia Hodgson MD 08/29/17 Ondansetron (Zofran) 4 Mg Tab 4 MG PO Q6HR Y for NAUSEA OR VOMITING, #6 TAB 0 Refills Prov: Alesia Hodgson MD 08/29/17 Disposition: DISCHARGE HOME Condition: Stable Alesia Hodgson MD Aug 28, 2017 21:48
[2017-08-28 21:50] LABS: ALT (GPT) 28 U/L (10-53); AST (GOT) 13 U/L (15-37); CREATININE 0.65 MG/DL (0.50-1.00); GLOMERULAR FILTRATION RATE 109 ML/MIN (>89)
[2017-08-28 21:52] LABS: TOTAL BILIRUBIN ADULT 0.3 MG/DL (0.2-1.0); TOTAL PROTEIN 8.1 GM/DL (6.4-8.2)
[2017-08-28 21:53] LABS: ALKALINE PHOSPHATASE 119 U/L (45-117)
[2017-08-28 21:55] LABS: CALCIUM OXALATE CRYSTALS,URINE MANY /hpf; RBC, URINE 0-3 /hpf (0-3)
[2017-08-28 23:25] VITALS: BP 121/66; PULSE 98; RESP 18; O2SAT 100
[2017-08-28] MEDS ORDERED: IOHEXOL 350 MG/ML 10 ML VIAL (for RAD DIAG) IVCONTRAST ONE (23:25)
[2017-08-28] MEDS ORDERED: METH2.5T PO (23:33)
[2017-08-28] MEDS ORDERED: DULO20 PO (23:33)
[2017-08-28] MEDS ORDERED: FOLI400T PO (23:33)
[2017-08-28] MEDS ORDERED: SERT-132 PO (23:33)
[2017-08-28] MEDS ORDERED: CIMZKIT SQ (23:33)
--- NOTE | 2017-08-29 00:37 | RADRPT ---
EXAM DATE/TIME: 08/28/2017 23:10 [facility] COMPARISON: CT ABDOMEN & PELVIS W CONTRAST, January 25, 2017, 1:19. INDICATIONS : Right uppper quadrant pain. Nausea. Vomiting. IV CONTRAST: 100 cc Omnipaque 350 (iohexol) IV ORAL CONTRAST: No oral contrast ingested. RADIATION DOSE: 22.42 CTDIvol (mGy) MEDICAL HISTORY : Gastroesophageal reflux disease. SURGICAL HISTORY : None. ENCOUNTER: Initial ACUITY: 1 day PAIN SCALE: 5/10 LOCATION: Right upper quadrant TECHNIQUE: Volumetric scanning of the abdomen and pelvis was performed. Using automated exposure control and ad justment of the mA and/or kV according to patient size, radiation dose was kept as low as reasonably achievable to obtain optimal diagnostic quality images. DICOM format image data is available electro nically for review and comparison. FINDINGS: LOWER LUNGS: The visualized lower lungs are clear. LIVER: Mild diffuse hepatic steatosis. No focal masses identified. Portal vein is patent. SPLEEN: Normal size without lesion. PANCREAS: Within normal limits. KIDNEYS: Normal in size and shape. There is no mass, stone or hydronephrosis. ADRENAL GLANDS: Within normal limits. VASCULAR: There is no aortic aneurysm. BOWEL/MESENTERY: No evidence of bowel dilatation. No free air or free fluid. Appendix within normal limits. ABDOMINAL WALL: Within normal limits. RETROPERITONEUM: There is no lymphadenopathy. BLADDER: No wall thickening or mass. REPRODUCTIVE: Intrauterine device in place. 3.6 cm oval cystic area in the left ovary is new. Previously seen right ovarian cystic mass is no longer present. INGUINAL: There is no lymphadenopathy or hernia. MUSCULOSKELETAL: Within normal limits for patient age. CONCLUSION: 1. 3.6 cm left ovarian cyst. 2. Previously seen right ovarian cystic mass no longer present. Homero Murdock MD on August 29, 2017 at 0:28 Board Certified Radiologist. This report was verified electronically.
[2017-08-29] MEDS ORDERED: DICY10 PO (00:42)
[2017-08-29] MEDS ORDERED: ZOFR4TAB PO (00:42)
[2017-08-29 01:06] VITALS: BP 111/68; TEMP 98.8
[2017-09-03] MEDS ORDERED: METH0.35 SQ (11:13)
== END 2017-08-29 01:15 | disposition home or self-care (01) ==
LOC: PHED 19:48
DX: R10.11 Right upper quadrant pain (principal); N83.202 Unspecified ovarian cyst, left side; M06.9 Rheumatoid arthritis, unspecified; F41.9 Anxiety disorder, unspecified; K21.9 Gastro-esophageal reflux disease without esophagitis; M79.7 Fibromyalgia; Z88.2 Allergy status to sulfonamides
CPT/HCPCS: 74177; 80053; 81001; 83690; 84703; 85025; 96374; 96375; 99284; J1885; J2270; J2405; Q9967

== ENCOUNTER → 2017-09-03 | Day surgery (SDC) | payer OTHER ==
[~2017-09-03] VITALS: Ht 165.1 cm; Wt 131.1 kg
[~2017-09-03] MED LIST changes: +*morphine SULFATE 4 MG/ML PERIprocedure ONLY ONE; +BUPIVACAINE/EPINEPHRINE 0.5% 50 ML VIAL ONE; +BUPIVACAINE/EPINEPHRINE 0.5% PF 10 ML VIAL ONE; +CHLORHEXIDINE GLUCONATE 2 % 1 PACK (2 CLOTHS) TOPICAL PRN; +CIMZKIT SQ; +DEXAMETHASONE SOD PHOS 4 MG/ML VIAL IV ONE; +DICY10 PO; +DO NOT ADM ANY ANTICOAGULANT DRUGS PRN; +DULO20 PO; +FOLI400T PO; +INSULIN HUMAN REGULAR 1,000 UNITS/10 ML VIAL SQ PRN; +LACTATED RINGER'S 1000 ML IV PRN; +LIDOCAINE HCL 1% PF 5 ML SYRINGE OTHER ONE; +METH0.35 SQ; +METH2.5T PO; +METOPROLOL TARTRATE 25 MG TAB PO PRN; +MIDAZOLAM HCL 2 MG/2 ML VIAL ONE; +ONDANSETRON HCL 4 MG/2 ML VIAL IV ONE; +ONDANSETRON HCL 4 MG/2 ML VIAL IV PUSH ONE; +PHENYLEPH/NS 1000 MCG/10 ML SYR IV ONE; +POVIDONE IODINE 5% (ANTISEPSIS KIT) 4 APPLICATIONS EACH NARE PRN; +PROPOFOL 200 MG/20 ML AMP IV ONE; +ROCURONIUM INJ 50 MG/5 ML SYRINGE IV PUSH ONE; +SERT-132 PO; +SODIUM CHLORID 0.9% 500 ML IV PRN; +ZOFR4TAB PO; +ceFAZolin 2 GM PREMIX 100 ML IV ONE; +ceFAZolin 2 GM in NS 100 ML IV SCH; +oxyCODONE/ACETAMINOPHEN 5 MG/325 MG TAB PO ONE
--- NOTE | 2017-09-03 12:37 | HHI.PR ---
Immediate Post Op Note Procedure Date: Sep 03, 2017 Pre Op Diagnosis: biliary colic, fatty liver Post Op Diagnosis: same Surgeon: Miguel Vigil MD Plant Operations Coordinator(s): see or sheet Procedure: lap chance,lap liver biopsy Findings: contracted gallbladder Complications: none Specimen(s) removed: gallbladder, liver biopsy Estimated blood loss: 5cc Anesthesia: General Drains: None Patient to: PACU Patient Condition: Good Miguel Vigil MD Sep 03, 2017 12:37
--- NOTE | 2017-09-03 14:40 | MP ---
cc: Miguel Vigil MD DATE OF OPERATION: 09/03/2017 DATE OF PROCEDURE: 09/03/2017. PREOPERATIVE DIAGNOSES: 1. Biliary colic. 2. Fatty liver steatosis. POSTOPERATIVE DIAGNOSES: 1. Biliary colic. 2. Fatty liver steatosis. PROCEDURES PERFORMED: 1. Laparoscopic cholecystectomy. 2. Laparoscopic liver biopsy. SURGEON: Dr. Miguel Vigil COMMERCIAL CENTER MANAGER: See OR sheet. ANESTHESIA: GETA. IV FLUIDS: See Anesthesia report. ESTIMATED BLOOD LOSS: 5 mL DRAINS: None. COMPLICATIONS: None. WOUND CLASSIFICATION: Clean/contaminated. SPECIMENS: 1. Gallbladder. 2. Liver biopsy. INDICATION: The patient is a 26-year-old female who presents with acute onset of right upper quadrant abdominal pain. She presented to the emergency department for evaluation including CT scan, relatively benign. However, clinically the patient noted severe onset of right upper quadrant abdominal pain with fatty food. The pain continued to progress and got worse and the patient was seen in the office. Further evaluation and decision for laparoscopic cholecystectomy. The patient also noted with steatosis fatty liver. Therefore, a liver biopsy was planned as well. DETAILS OF PROCEDURE: The patient was taken to the operating suite, placed in the supine position. She was prepped and draped in the usual sterile fashion after induction of general endotracheal anesthesia. A brief timeout was undertaken stating the correct patient, procedure, and surgical site. We were all in agreement with this. Attention first directed to the umbilicus where a small stab shawn incision was made with an 11 blade. Veress needle placed, intraabdominal placement confirmed with saline drop test. The abdomen was insufflated to 15 mm pneumoperitoneum. Cursory inspection noted no evidence of injury. On inspection, the gallbladder was noted to be a little contracted. The liver was fairly sizeable with evidence of superficial fatty liver change and a nutmeg appearance. Three other ports were placed, a 12 mm for grasper, followed by two 5 mm right subcostals. The patient was placed in reverse Trendelenburg and airplaned to the left. The gallbladder fundus was grasped and retracted cephalad. The cystic duct and cystic artery were dissected out with the [place] and electro Bovie cautery and hook electro Bovie cautery. The cystic artery was identified. Two clips were placed proximal and distal; this was transected with Endo Ashwin. The cystic duct was also identified and same was transected with Endo Ashwin after 2 clips placed proximal and one distal. The gallbladder was removed from the gallbladder bed using hook electro Bovie cautery. Small little biliary leaking was bovied to the liver bed. Hemostasis was obtained, suction irrigation until the effluent was clear. The gallbladder was placed in an EndoCatch bag and removed from the epigastric port. Liver biopsy was then done. A Raymundo-Cut liver biopsy was obtained and placed through the port. Two small liver biopsy samples were obtained. Electro Bovie cautery was used for hemostasis. A small piece of SNoW was placed topically. No evidence of further bleeding. The insufflation was removed. The ports were removed prior. The epigastric port was closed with 0 Vicryl on a suture passer closure device. A 4-0 Monocryl was used to close all subcuticular incisions. The patient tolerated the procedure well and there was no intraoperative complications. All lap and instrument counts were correct at the end of the procedure. The patient was extubated and taken stable to PACU. MD BRITTNEE Michaels/HERB , 02:10 PM , 02:39 PM
[2017-09-03 16:05] VITALS: BP 117/74; PULSE 82; RESP 18; TEMP 98.3; O2SAT 97
== END | disposition home or self-care (01) ==
LOC: HSDC 10:07
PROVIDERS: ATTEND Surgery
DX: K80.50 Calculus of bile duct without cholangitis or cholecystitis without obstruction (principal); K76.0 Fatty (change of) liver, not elsewhere classified
CPT/HCPCS: 00790; 47379; 47562; 84703; 88304; 88307; 88313; J0690; J1100; J2250; J2270; J2370; J2405; J3010; J7120